=== PATIENT | male | born 1990 | race African-American/Black ===

== ENCOUNTER → 2018-07-10 | Outpatient (CLI) | payer BC, OTHER ==
--- NOTE | 2018-07-10 10:15 | PCVCIMAG ---
APPROVED REPORT Study performed: 07/10/2018 08:36:14 EXAM: Comprehensive 2D, Doppler, and color-flow Echocardiogram Patient Location: Echo lab Room #: 3Status: routine BSA: 0.87 HR: 50 bpmBP: 120/80 mmHg Rhythm: Bradycardia Other Information Study Quality: Good Indications Hypertension/HDD 2D Dimensions IVSd: 10.32 (7-11mm)LVOT Diam: 22.00 (18-24mm) LVDd: 42.87 mm PWd: 9.64 (7-11mm)Ascending Ao: 25.11 (22-36mm) LVDs: 31.24 (25-40mm) Left Atrium: 33.14 (27-40mm) Aortic Root: 31.50 mm LV Single Plane 4CH: 64.85 % LV Single Plane 2CH: 58.16 % Biplane EF: 59.6 % Volumes Left Atrial Volume (Systole) Single Plane 4CH: 50.71 mLSingle Plane 2CH: 41.22 mL LA ESV Index: 58.00 mL/m2 Aortic Valve AoV Peak Dash.: 1.25 m/s AO Peak Gr.: 6.25 mmHgLVOT Max P.32 mmHg LVOT Max V: 1.04 m/s JACQUE Vmax: 3.20 cm2 Mitral Valve E/A Ratio: 1.5 MV Decel. Time: 242.40 ms MV E Max Dash.: 1.04 m/s MV A Dash.: 0.70 m/s IVRT: 55.36 ms TDI E/Lateral E': 6.12E/Medial E': 8.00 Medial E' Dash.: 0.13 m/s Lateral E' Dash.: 0.17 m/s Pulmonary Valve PV Peak Dash.: 1.04 m/sPV Peak Gr.: 4.29 mmHg MT End Vmax: 0.92 m/s Pulmonary Vein P Vein S: 0.60 m/sP Vein A: 0.37 m/s P Vein D: 0.76 m/sP Vein A Dur.: 156.9 msec P Vein S/D Ratio: 0.79 Tricuspid Valve RAP Estimate: 7.00 mmHg Left Ventricle The left ventricle is normal size. There is normal LV segmental wall motion. There is normal left ventricular wall thickness. Left ventricular systolic function is normal. The left ventricular ejection fraction is within the normal range. LVEF is 60-65%. The left ventricular diastolic function is normal. Right Ventricle The right ventricle is normal size. The right ventricular systolic function is normal. Atria Left atrium is dilated. The right atrium size is normal. Aortic Valve The aortic valve is normal in structure. No aortic regurgitation is present. There is no aortic valvular stenosis. Mitral Valve The mitral valve is normal in structure. There is no mitral valve regurgitation noted. No evidence of mitral valve stenosis. Tricuspid Valve The tricuspid valve is normal in structure. There is no tricuspid valve regurgitation noted. Pulmonic Valve The pulmonary valve is normal in structure. Mild pulmonic regurgitation. Great Vessels The aortic root is normal in size. IVC is normal in size and collapses >50% with inspiration. Pericardium There is no pericardial effusion. <Conclusion> The left ventricle is normal size. There is normal left ventricular wall thickness. LVEF is 60-65%. The left ventricular diastolic function is normal. The right ventricle is normal size. Left atrium is dilated. The aortic valve is normal in structure. There is no mitral valve regurgitation noted. There is no tricuspid valve regurgitation noted. The aortic root is normal in size. There is no pericardial effusion.
--- NOTE | 2018-07-10 16:46 | PCVCIMAG ---
EXAM: BILATERAL RENAL ULTRASOUND AND BILATERAL RENAL DUPLEX INDICATION: Hypertension FINDINGS: Right kidney: Length measures 12.9 cm. No hydronephrosis or extensive renal scarring. Right renal duplex: Adequate technical quality. No sonographic evidence of renal artery stenosis. The aortic to renal artery ratio is 1.0. The renal vein is patent. Left kidney: Length measures 12.2 cm. No hydronephrosis or extensive renal scarring. Left renal duplex: Adequate technical quality. No sonographic evidence of renal artery stenosis. The aortic to renal artery ratio is 1.0. The renal vein is patent. Bladder: No obvious abnormalities. IMPRESSION: No significant renal artery stenosis. No hydronephrosis bilaterally. LOC:[id number]
== END | disposition home or self-care (01) ==
LOC: PCVCIMAG 08:31
PROVIDERS: ATTEND Internal Medicine Cardiovascular Disease
DX: I10 Essential (primary) hypertension (principal); R00.1 Bradycardia, unspecified; Z82.49 Family history of ischemic heart disease and other diseases of the circulatory system
CPT/HCPCS: 76770; 93306; 93975